=== PATIENT | male | born 1945 | race Caucasian/White ===

== ENCOUNTER 2018-08-01 23:39 | Inpatient (IN) | payer OTHER ==
[~2018-08-01] VITALS: Ht 172.7 cm; Wt 99.8 kg
[2018-08-02 00:11] LABS: CREATININE 1.2 mg/dL (0.5-1.5); POTASSIUM 4.2 mmol/L (3.5-5.1)
[2018-08-02 00:13] LABS: NUCLEATED RED BLOOD CELLS 0.1 % (0.0-0.19); WHITE BLOOD COUNT (AUTO) 5.8 K/uL (4.8-10.8)
[2018-08-02 00:19] LABS: INR 0.95 (0.85-1.15); PARTIAL THROMBOPLASTIN TIME 26.6 SEC (26.3-35.5)
[2018-08-02 00:19] LABS: APPEARANCE,URINE Clear (CLEAR); BILIRUBIN,URINE Negative (NEGATIVE); COLOR,URINE Yellow (YELLOW); GLUCOSE, URINE (UA) Negative (NEGATIVE); KETONES,URINE Negative (NEGATIVE); LEUKOCYTE ESTERASE ,URINE Negative (NEGATIVE); NITRATE,URINE Negative (NEGATIVE); OCCULT BLOOD,URINE Negative (NEGATIVE); PH,URINE 5.5 (5.0-8.0); PROTEIN,URINE POS 1+ (NEGATIVE); UROBILINOGEN,URINE 0.2 mg/dL (0.2-1.0)
[2018-08-02 00:20] LABS: BASOPHILS % (AUTO) 0.5 % (0.0-5.0); EOSINOPHILS % (AUTO) 2.2 % (0.0-8.0); HEMATOCRIT 37.9 % (42-54); LYMPHOCYTES % (AUTO) 46.1 % (21.0-51.0); MEAN CORPUSCULAR HEMOGLOBIN 30.4 pg (27.0-33.0); MEAN CORPUSCULAR HGB CONC 33.3 g/dL (32.0-36.0); MEAN CORPUSCULAR VOLUME 91.3 fL (79-99); MONOCYTES % (AUTO) 8.2 % (3.0-13.0); PLATELET COUNT (AUTO) 138 K/uL (130-400); RED BLOOD CELL COUNT(AUTO) 4.15 MIL/uL (4.50-6.20); RED CELL DISTRIBUTION WIDTH 15.2 % (11.0-15.5)
[2018-08-02 00:22] LABS: ALBUMIN 3.7 g/dL (3.5-5.0); BILIRUBIN,TOTAL 0.6 mg/dL (0.2-1.0)
[2018-08-02 00:46] LABS: BACTERIA,URINE None Seen /HPF (None Seen); RBC,URINE 0-1 /HPF (0-1); SQUAMOUS EPITHELIAL CELL,UR 0-2 /HPF (0-2); WBC,URINE 0-1 /HPF (0-1)
[2018-08-02] MEDS ORDERED: ASPIRIN 325MG EC TAB 325 MG TABLET.DR PO STA (02:21)
[2018-08-02] MEDS ORDERED: GLUCAGON 1MG KIT 1 MG ML IM PRN (02:30)
[2018-08-02] MEDS ORDERED: NITROGLYCERIN 0.4 MG SL TAB SL PRN (02:30)
[2018-08-02] MEDS ORDERED: MORPHINE SULFATE 2 MG/ML 1ML SYG IV PRN (02:30)
[2018-08-02] MEDS ORDERED: DEXTROSE 50%-WATER 50 ML DISP.SYRIN IV PRN (02:30)
[2018-08-02] MEDS ORDERED: HYDRALAZINE HCL 20 MG/ML VIAL IV PRN (02:30)
[2018-08-02] MEDS ORDERED: MORPHINE SULFATE 4 MG/1ML SYG IV PRN (02:30)
[2018-08-02] MEDS ORDERED: ONDANSETRON HCL 4 MG/2 ML VIAL IV PRN (02:30)
[2018-08-02] MEDS ORDERED: ACETAMINOPHEN 325 MG TAB PO PRN ×2 (02:30)
[2018-08-02 02:42] LABS: HEMOGLOBIN A1C 7.3 % (4.0-6.0)
[2018-08-02] MEDS ORDERED: MAGNESIUM 2GM PREMIX 50ML 50 ML IV PRN (02:45)
[2018-08-02] MEDS ORDERED: POTASSIUM CHLORIDE 20 MEQ ERTAB PO PRN (02:45)
[2018-08-02] MEDS ORDERED: POTASSIUM CHLORIDE 20MEQ/100ML 100 ML IV PRN (02:45)
[2018-08-02] MEDS ORDERED: LIDOCAINE HCL-MPF 1% 2ML VIAL IVP PRN (02:45)
[2018-08-02] MEDS ORDERED: POTASSIUM CHLORIDE 10% ELIXIR 20 MEQ/15 ML UDCUP PO PRN (02:45)
[2018-08-02] MEDS ORDERED: MAGNESIUM 2GM PREMIX 50ML 50 ML IV ONE (03:04)
[2018-08-02 04:23] LABS: AMPHET/METH SCREEN,URINE NEGATIVE (NEGATIVE); BARBITURATE SCREEN, URINE NEGATIVE (NEGATIVE); BENZODIAZEPINES SCREEN,URINE NEGATIVE (NEGATIVE); CANNABINOID SCREEN,URINE NEGATIVE (NEGATIVE); COCAINE SCREEN,URINE NEGATIVE (NEGATIVE); OPIATE SCREEN,URINE NEGATIVE (NEGATIVE); PHENCYCLIDINE SCREEN,URINE NEGATIVE (NEGATIVE)
[2018-08-02 07:07] LABS: CHOLESTEROL 106 mg/dL (<200); CREATINE KINASE, TOTAL 59 U/L (21-232); HDL CHOLESTEROL 25 mg/dL (29-71); LDL DIRECT 68 mg/dL (0-99); MYOGLOBIN 45 ng/mL (10-92); TRIGLYCERIDES 157 mg/dL (30-200); TROPONIN I < 0.04 ng/mL (0.00-0.06)
[2018-08-02] MEDS ORDERED: INSULIN HUMULIN R 100 UNIT/ML 3ML SQ SCH (07:30)
[2018-08-02] MEDS ORDERED: CHOL100018 PO (08:35)
[2018-08-02] MEDS ORDERED: METO100T14 PO (08:35)
[2018-08-02] MEDS ORDERED: LISI-617 PO (08:35)
[2018-08-02] MEDS ORDERED: METF-445 PO (08:35)
[2018-08-02] MEDS ORDERED: INSLAN SQ (08:35)
[2018-08-02] MEDS ORDERED: SIMV20TA6 PO (08:35)
[2018-08-02] MEDS ORDERED: FAMOTIDINE 20MG TAB 20 MG TAB PO SCH (09:00)
[2018-08-02] MEDS ORDERED: ENOXAPARIN SODIUM 30 MG/0.3 ML SQ SCH (09:00)
[2018-08-02] MEDS ORDERED: METOPROLOL TARTRATE 25 MG TAB PO SCH (09:00)
[2018-08-02] MEDS ORDERED: ASPIRIN 325 MG TABLET ONE (09:27)
[2018-08-02] MEDS ORDERED: FAMOTIDINE 20MG TAB 20 MG TAB ONE (09:27)
[2018-08-02] MEDS ORDERED: ENOXAPARIN SODIUM 30 MG/0.3 ML SQ ONE (09:27)
[2018-08-02] MEDS ORDERED: METOPROLOL TARTRATE 25 MG TAB ONE (09:28)
--- NOTE | 2018-08-02 10:08 | NUR ---
[facility] [place] pt who lives alone, daughter Effie Nolasco is ER contact [phone]. Pt reports he is independent, no DME or services. Pt denies dc needs and states he [place] Addendum: 08/02/18 at 1009 by STACY SAMSON SS Amended: Links added.
[2018-08-02 12:35] LABS: CREATINE KINASE, TOTAL 49 U/L (21-232); MYOGLOBIN 46 ng/mL (10-92); TROPONIN I < 0.04 ng/mL (0.00-0.06)
[2018-08-03] MEDS ORDERED: ASPIRIN 325MG EC TAB 325 MG TABLET.DR PO SCH (09:00)
== END 2018-08-02 15:11 | disposition home or self-care (01) | DRG 305 ==
LOC: EDH 23:39 → EDHIP 08-02 02:25
PROVIDERS: ADMIT Internal Medicine; ATTEND Internal Medicine
DX: I16.0 Hypertensive urgency (principal); E11.9 Type 2 diabetes mellitus without complications; E78.5 Hyperlipidemia, unspecified; E83.42 Hypomagnesemia; I10 Essential (primary) hypertension; I25.10 Atherosclerotic heart disease of native coronary artery without angina pectoris; I49.3 Ventricular premature depolarization; Z95.1 Presence of aortocoronary bypass graft; Z90.49 Acquired absence of other specified parts of digestive tract; I25.2 Old myocardial infarction; Z79.4 Long term (current) use of insulin; Z79.899 Other long term (current) drug therapy
CPT/HCPCS: 36415; 71045; 80053; 80061; 80305; 81001; 82550; 82948; 83036; 83735; 83874; 84484; 85025; 85610; 85730; 93005; G0378; J1650; J3475

== ENCOUNTER → 2018-09-18 | Outpatient (CLI) | payer OTHER ==
[~2018-09-18] MED LIST: CHOL100018 PO; INSLAN SQ; LISI-617 PO; METF-445 PO; METO100T14 PO; SIMV20TA6 PO
== END | disposition home or self-care (01) ==
LOC: SHCH 13:52
PROVIDERS: ATTEND Internal Medicine Cardiovascular Disease
DX: I11.9 Hypertensive heart disease without heart failure (principal); I25.810 Atherosclerosis of coronary artery bypass graft(s) without angina pectoris
CPT/HCPCS: 93306

== ENCOUNTER 2022-02-13 05:37 | Observation (INO) | payer OTHER ==
[2022-02-08 11:39] LABS: BASOPHILS % (AUTO) 0.7 % (0.0-5.0); EOSINOPHILS % (AUTO) 1.5 % (0.0-8.0); HEMATOCRIT 45.4 % (42-54); LYMPHOCYTES % (AUTO) 39.8 % (21.0-51.0); MEAN CORPUSCULAR HEMOGLOBIN 28.3 pg (27.0-33.0); MEAN CORPUSCULAR HGB CONC 31.9 g/dL (32.0-36.0); MEAN CORPUSCULAR VOLUME 88.7 fL (79-99); MONOCYTES % (AUTO) 7.7 % (3.0-13.0); PLATELET COUNT (AUTO) 142 K/uL (130-400); RED BLOOD CELL COUNT(AUTO) 5.12 MIL/uL (4.50-6.20); RED CELL DISTRIBUTION WIDTH 15.9 % (11.0-15.5); WHITE BLOOD COUNT (AUTO) 8.7 K/uL (4.8-10.8)
[2022-02-08 11:50] LABS: CREATININE 1.5 mg/dL (0.5-1.5); POTASSIUM 4.2 mmol/L (3.5-5.1)
[2022-02-08 11:51] LABS: APPEARANCE,URINE CLEAR (CLEAR); BILIRUBIN,URINE NEGATIVE (NEGATIVE); COLOR,URINE YELLOW (YELLOW); GLUCOSE, URINE (UA) >=1000 mg/dL (NEGATIVE); KETONES,URINE NEGATIVE (NEGATIVE); LEUKOCYTE ESTERASE ,URINE NEGATIVE (NEGATIVE); NITRATE,URINE NEGATIVE (NEGATIVE); OCCULT BLOOD,URINE NEGATIVE (NEGATIVE); PROTEIN,URINE NEGATIVE (NEGATIVE); UROBILINOGEN,URINE 0.2 mg/dL (0.2-1.0)
[2022-02-08 11:56] LABS: BACTERIA,URINE Rare /HPF (None Seen); RBC,URINE 0-1 /HPF (0-1); SQUAMOUS EPITHELIAL CELL,UR Rare /HPF (0-2); WBC,URINE 0-1 /HPF (0-1)
[2022-02-08 12:00] LABS: INR 0.93 (0.85-1.15); PROTHROMBIN TIME 10.2 SEC (9.6-11.6)
[2022-02-08 12:01] LABS: PARTIAL THROMBOPLASTIN TIME 25.9 SEC (26.3-35.5)
[2022-02-08 12:10] LABS: B-TYPE NATRIURETIC PEPTIDE 115 pg/mL (0-100)
[2022-02-10 11:39] VITALS: BP 178/92
[2022-02-13] VITALS (16 sets, daily range): BP systolic 92–170; BP diastolic 47–72
[~2022-02-13] VITALS: Ht 170.2 cm; Wt 95.3 kg
[~2022-02-13 05:37] MED LIST changes: +0.9% NACL 500ML IV.SOLN 500 ML IV SCH; +AEC81 PO; +ATOR20TA65 PO; +EMPA25TA PO; +GABA-529 PO; -LISI-617 PO; +LOSA50TA64 PO; -METF-445 PO; -SIMV20TA6 PO; +chlorthalidone PO
[2022-02-13] MEDS ORDERED: IOHEXOL 350 MG/ML 100ML INFUS..BTL IV ONE ×2 (07:14→08:07)
[2022-02-13] MEDS ORDERED: SODIUM BICARB 50MEQ 50ML VIAL 50 ML ONE (07:14)
[2022-02-13] MEDS ORDERED: IOHEXOL-350 50ML VIAL IV ONE (07:14)
[2022-02-13] MEDS ORDERED: LIDOCAINE PF 100MG/5ML (2%) SYRINGE 5ML ONE (07:14)
[2022-02-13] MEDS ORDERED: NITROGLYCERIN 50MG VIAL ONE (07:14)
[2022-02-13] MEDS ORDERED: MIDAZOLAM HCL 1 MG/ML 2ML VIAL ONE ×5 (07:15→10:49)
[2022-02-13] MEDS ORDERED: MEPERIDINE-PF 25 MG/ML SYG ONE ×5 (07:15→10:49)
[2022-02-13] MEDS ORDERED: HEPARIN 10,000 UNIT/10ML (1,000 UNIT/ML) VIAL ONE (07:59)
[2022-02-13] MEDS ORDERED: CLOPIDOGREL 300MG TAB ONE (09:14)
[2022-02-13] MEDS ORDERED: ASPIRIN 325MG EC TAB PO ONE (09:14)
[2022-02-13] MEDS ORDERED: GLUCAGON 1MG KIT 1 MG ML IM PRN (09:30)
[2022-02-13] MEDS ORDERED: DEXTROSE 50%-WATER 50 ML DISP.SYRIN IV PRN (09:30)
[2022-02-13] MEDS ORDERED: 0.9%NACL 1000ML 1,000 ML IV SCH (09:30)
[2022-02-13] MEDS ORDERED: NITROGLYCERIN 0.4 MG SL TAB SL ONE (10:20)
[2022-02-13] MEDS: INSULIN HUMULIN R 100 UNIT/ML 3ML SQ SCH ×3 (11:30→20:58)
[2022-02-13] MEDS ORDERED: GABAPENTIN 100 MG CAPSULE PO PRN (16:30)
[2022-02-13] MEDS: METOPROLOL SUCCINATE 50 MG TAB.SR.24H PO SCH (20:11)
[2022-02-13] MEDS ORDERED: ATORVASTATIN 20 MG TABLET PO SCH (21:00)
[2022-02-13] MEDS ORDERED: INSULIN GLARGINE 100 UNITS/ML 10 ML VIAL SQ SCH (21:00)
[2022-02-14 00:06] VITALS: BP 129/62
[2022-02-14 03:06] VITALS: BP 119/60
[2022-02-14] MEDS: INSULIN HUMULIN R 100 UNIT/ML 3ML SQ SCH (06:11)
[2022-02-14 07:00] VITALS: BP 132/56
[2022-02-14] MEDS ORDERED: ASPIRIN 81 MG EC TAB PO SCH (09:00)
[2022-02-14] MEDS ORDERED: CHOLECALCIFEROL 1000 UNIT PO SCH (09:00)
[2022-02-14] MEDS ORDERED: LOSARTAN 50 MG TABLET PO SCH (09:00)
[2022-02-14] MEDS: METOPROLOL SUCCINATE 50 MG TAB.SR.24H PO SCH (09:16)
[2022-02-14] MEDS ORDERED: CLOPIDOGREL 75MG TAB PO SCH (11:00)
[2022-02-14] MEDS ORDERED: CLOP75TA14 PO ×2 (11:13→11:14)
== END 2022-02-14 11:38 | disposition home or self-care (01) ==
LOC: DAH 05:37 → DAHIP 05:38 → DAH 05:38 → 2DH 16:59
PROVIDERS: ADMIT Internal Medicine Cardiovascular Disease; ATTEND Internal Medicine Cardiovascular Disease
DX: I25.10 Atherosclerotic heart disease of native coronary artery without angina pectoris (principal); I10 Essential (primary) hypertension; E11.9 Type 2 diabetes mellitus without complications; I49.3 Ventricular premature depolarization; I25.119 Atherosclerotic heart disease of native coronary artery with unspecified angina pectoris; E78.5 Hyperlipidemia, unspecified; Z95.1 Presence of aortocoronary bypass graft; Z79.899 Other long term (current) drug therapy; Z98.890 Other specified postprocedural states
CPT/HCPCS: 80048; 83880; 85025; 85610; 85730; 81001; 36415; 71045; 93005 ×5; 93459; 92920; 96360; 96361; 82948 ×4; C1769 ×4; C1887 ×4; C1894; C1760; C1874 ×2; C1725 ×3; Q9965 ×2; G0378 ×30; J7040; J3490 ×2; J2001; J1644 ×2; J2250 ×5; J1815; J2175 ×5; Q9967 ×3; A4215; A4223 ×3; A4222; A4221; A4663; A4216; A4606; C9600 ×2; 85347; 99156; 99157; C9601

== ENCOUNTER → 2024-03-10 | Outpatient (CLI) | payer OTHER ==
[~2024-03-10] MED LIST changes: -0.9% NACL 500ML IV.SOLN 500 ML IV SCH; +CLOP-31 PO
== END | disposition home or self-care (01) ==
LOC: SHCH 08:40
PROVIDERS: ATTEND Internal Medicine Cardiovascular Disease
DX: I70.293 Other atherosclerosis of native arteries of extremities, bilateral legs (principal)
CPT/HCPCS: 93925